=== PATIENT | male | born 1990 | race Two or more races ===

== ENCOUNTER 2017-02-27 13:06 | Emergency (ER) | payer SELFPAY ==
[~2017-02-27] VITALS: Ht 170.2 cm; Wt 68.0 kg
[2017-02-27] MEDS ORDERED: ANECREAM515 GM TP (14:33)
[2017-02-27] MEDS ORDERED: COLACE100 MG ORAL (14:33)
[2017-02-27 14:45] VITALS: BP 147/71
--- NOTE | 2017-02-27 14:54 | Emergency Room Report ---
History of Present Illness General Chief Complaint: Pain Source: Patient Present Illness HPI The patient is a 26-year-old male with a history of hemorrhoids presenting for hemorrhoids. The patient states that he was first diagnosed 4 years prior but states that he has had a flareup 3 weeks prior. Pain is described as an 8/10 dull ache and worse with sitting. He denies recent constipation or diarrhea. He does admit to sitting most of the day due to work. He denies radiating pain. he denies other symptoms including N, V, F, chills, abd pain, melena, hematochezia Allergies: Coded Allergies: No Known Allergies (Unverified , 02/27/17) Patient History Past Medical History: see triage record Pertinent Family History: none Reviewed Nursing Documentation: PMH: Agreed, PSxH: Agreed Nursing Documentation-PMH Past Medical History: No History, Except For Hx Cardiac Problems: No - hemorrhoids Review of Systems All Other Systems: negative except mentioned in HPI Physical Exam Vital Signs Date Time Temp Pulse Resp B/P Pulse Ox O2 Delivery O2 Flow Rate FiO2 02/27/17 13:59 98.2 49 20 147/71 100 Room Air Sp02 EP Interpretation: reviewed, normal General Appearance: no apparent distress, alert, GCS 15, non-toxic Head: normocephalic, atraumatic Eyes: bilateral eye PERRL, bilateral eye normal inspection ENT: hearing grossly normal, normal pharynx, no angioedema, normal voice Neck: full range of motion, supple/symm/no masses Gastrointestinal: normal bowel sounds, non tender, soft, non-distended, no guarding, no rebound Rectal: normal rectal tone, hemorrhoids - external Genitourinary: normal inspection, no CVA tenderness Musculoskeletal: back normal, gait/station normal, normal range of motion, non- tender Neurologic: alert, oriented x3, responsive, motor strength/tone normal, sensory intact, speech normal Psychiatric: judgement/insight normal, memory normal, mood/affect normal, no suicidal/homicidal ideation Skin: normal color, no rash, warm/dry, well hydrated Lymphatic: no adenopathy Medical Decision Making PA Attestation Dr. Lynn is my supervising physician. Patient management was discussed with my supervising physician Diagnostic Impression: Primary Impression: External hemorrhoid ER Course The patient is a 26-year-old male presenting for hemorrhoids Differential diagnoses considered include but not limited to internal hemorrhoid , external hemorrhoid, cellulitis, abscess, rectal prolapse Physical exam: No apparent distress Abdomen soft and nontender. Rectal exam reveals external hemorrhoid. The patient will be discharged home with instructions for sitz bath as well as prescriptions for Colace and Lidoderm. He will obtain seat cushion for work. ER precautions given Last Vital Signs Date Time Temp Pulse Resp B/P Pulse Ox O2 Delivery O2 Flow Rate FiO2 02/27/17 13:59 98.2 49 20 147/71 100 Room Air Status: improved Disposition: HOME, SELF-CARE Condition: Improved Scripts Lidocaine (ANECREAM5) 15 Gm Cream..g. 15 GM TP TID, #15 GM Prov: RUDY COLLAZO 02/27/17 Docusate Sodium* (COLACE*) 100 Mg Capsule 100 MG ORAL TWICE A DAY, #30 CAP Prov: RUDY COLLAZO 02/27/17 Patient Instructions: How to Take a Sitz Bath, Hemorrhoids Additional Instructions: I discussed my findings with the patient. All questions and concerns have been answered. Treatment and medication compliance have been addressed. I advised the patient that they need to follow up with PMD in 3-5 days. Return to ED if symptoms worsen, new symptoms arise, or if needed for any reason. Patient verbalized understanding of discharge instructions. RUDY COLLAZO Feb 27, 2017 14:54
== END 2017-02-27 14:45 | disposition home or self-care (01) ==
LOC: EMR 14:30
DX: K64.4 Residual hemorrhoidal skin tags (principal)
CPT/HCPCS: 99284